=== PATIENT | female | born 1990 | race Caucasian/White ===

== ENCOUNTER 2024-10-27 18:05 | Emergency (ER) | payer MEDICAID ==
[~2024-10-27] VITALS: Ht 165.1 cm; Wt 53.0 kg
[2024-10-27] MEDS ORDERED: CYCL-1 PO (21:09)
--- NOTE | 2024-10-27 21:10 | Physician Documentation ---
History of Present Illness ~ Chief Complaint: Leg Pain Stated Complaint: NUMB LEGS Time Seen by MD: 21:33 OK to notify your PCP?: Yes Source: patient Mode of Arrival: POV Exam Limitations: no limitations HPI Neelima is a 33-year-old female presenting to our emergency department for bilateral leg pain and tingling which originates from the low back for the past 2 months. 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 No known trauma to her low back. She has a history of scoliosis and believes she has sciatica with no official diagnosis. She denies any loss of bowel or bladder or numbness to the inner thighs. Tetanus witin 5 years: Yes Medication Reconciliation Allergies: Coded Allergies: No Known Allergies (Unverified , 10/27/24) Scheduled Cyclobenzaprine* (Cyclobenzaprine*), 1 TAB PO HS Past Medical History Last Menstrual Period: Oct 15, 2024 Review of Systems All Other Systems at this time: Reviewed and Negative Physical Exam Vital Signs: RN Vital Signs have been reviewed: Yes, Temperature: 98.3, Source: Temporal, Heart Rate: 69, Respiratory Rate: 16, BP: 98/62, Pulse Oximetry: 98, Weight: 53.000 Oxygen Flow Rate: 0 Pulse Oximetry Reflects: adequate oxygenation Physical Exam General: Alert, no apparent distress. HEENT: PERRL, EOMI, no injection, moist mucous membranes. Neck: Full range of motion. Respiratory: Lungs clear, no respiratory distress. Chest: No accessory muscle use. Cardiovascular: Regular rate and rhythm, no murmurs. Gastrointestinal: Soft, nontender, nondistended. Bowels sounds present. Extremities: Normal range of motion, no deformity. Neurologic: Oriented x4. Normal gait, walks independently. Psychiatric: Normal mood and affect. Skin: Normal color, warm and dry. No edema, no ecchymosis. Progress Results/Orders Reviewed/noted all lab results: Yes Results/Orders Completed Orders - ИРИНА TIM [employer] Ketorolac Trometh 30mg/Ml Vial (Toradol (10/27/24 21:00) Cyclobenzaprine Tablet (Flexeril Tablet) (10/27/24 21:00) Medications Received in ER Medications (Trade) Dose Ordered Sig/William Route PRN Reason Start Time Stop Time Status Last Admin Dose Admin (Toradol inj. 30mg/ml) 30 mg ONCE ONCE IM 10/27/24 21:00 10/27/24 21:02 DC 10/27/24 21:16 30 MG Vital Signs 10/27/24 10/27/24 10/27/24 18:38 21:16 21:32 Temp 98.3 98.3 Pulse 69 62 Resp 16 10 12 B/P (MAP) 98/62 120/76 Pulse Ox 98 99 O2 Flow Rate 0 Medical Decision Making Findings Neelima is a 33-year-old female presenting with chronic bilateral leg tingling which originates from her low back for the past 2 months. 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 She denies any symptoms of cauda equina such as loss of bowel or bladder or numbness to the inner thighs. She was provided with a Toradol in injection and reports having relief from that. She also received cyclobenzaprine for muscle spasms. She was discharged home with prescription for cyclobenzaprine and told to use Tylenol and ibuprofen for pain relief. She should follow up with her primary care provider in the next 3 days and return back here for any new or worsening symptoms. General Diff Dx:Considerations: Include: Neurovascular injury, Sprain Additional Comment Cauda equina syndrome. Departure Disposition: 01 HOME / SELF CARE / HOMELESS Impression: Primary Impression: Sciatica Condition: Stable Discharge Instructions: Sciatica Additional Instructions: Do not drive when taking Flexeril as you do not know how it will affect her body. Please use ice/heat for pain relief and follow up with her primary care provider in the next 3 days. Please return back here or in the emergency department for any new or worsening symptoms. You can use Tylenol and ibuprofen at home for pain relief Referrals: NO PRIMARY CARE PROVIDER (PCP) Prescriptions Cyclobenzaprine* (Cyclobenzaprine*) 10 Mg Tablet 1 TAB PO HS, #15 TAB Prov: ИРИНА TIM 10/27/24 Education Educated: Patient Educated regarding: diagnosis, treatment, prognosis, need for follow up Signature Scribe Signature: . Attestation: Scribed for Ирина Timp by Ирина Cordero NP . 10/28/24 00:59 ИРИНА TIMP October 27, 2024 21:10
[2024-10-27] MEDS: ketorolac trometh 30MG/ML vial 30 MG/ML VIAL IM ONE (21:16)
[2024-10-27] MEDS: cyclobenzaprine 10mg tablet PO ONE (21:25)
[2024-10-27 21:32] VITALS: BP 120/76; PULSE 62; RESP 12; TEMP 98.3; O2SAT 99
== END 2024-10-27 21:26 | disposition home or self-care (01) ==
LOC: ER 18:06
DX: M54.32 Sciatica, left side (principal); M54.31 Sciatica, right side; Z79.899 Other long term (current) drug therapy
CPT/HCPCS: 96372; 99283; J1885